=== PATIENT | male | born 1995 | race Caucasian/White ===

== ENCOUNTER 2018-01-29 15:48 | Emergency (ER) | payer OTHER ==
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
[2018-01-29 16:14] VITALS: BP 127/74; PULSE 86; TEMP 99.1; BMI 30.2
[2018-01-29] MEDS ORDERED: NAPROXEN 500 MG TABLET (FP) PO ONE (16:25)
[2018-01-29] MEDS ORDERED: NAPROXEN 500 MG TABLET (FP) ONE (16:26)
[2018-01-29] MEDS ORDERED: CYCLOBENZAPRINE HCL 10 MG TABLET (FP) ONE (16:26)
[2018-01-29] MEDS ORDERED: CYCLOBENZAPRINE HCL 5 MG TABLET PO ONE (16:26)
== END 2018-01-29 16:35 | disposition home or self-care (01) ==
LOC: FER 15:48
DX: S13.4XXA Sprain of ligaments of cervical spine, initial encounter (principal); V43.52XA Car driver injured in collision with other type car in traffic accident, initial encounter; Y93.89 Activity, other specified; Y92.410 Unspecified street and highway as the place of occurrence of the external cause
CPT/HCPCS: 99282-25